=== PATIENT | male | born 1975 | race Caucasian/White ===

== ENCOUNTER 2016-09-09 14:51 | Emergency (ER) | payer BC ==
[2016-09-09 15:48] VITALS: BP 129/89
--- NOTE | 2016-09-19 14:37 | UC ---
Tami Lu SooYoung, scribed for Wanda Multani MD on 09/09/16 at 1618 . Back Pain HPI - HPI Summary HPI Summary: Pt is a 41 y/o M presents with c/o acute on chronic diffuse L hip pain onset approx 5 days ago. Radiating to LLE. Associated sx: numbness in LE, since resolved. Denies abd pain or changes. Pert PMHx: sciatica, scoliosis. He's worked all week but today his employer told him to go see a doctor. 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 He has not taken any pain medication today. Scheduled to see Dr. Vincent on 09/19. Pt is a non-smoker, chews smokeless tobacco, smoke marijuana. - History of Current Complaint Chief Complaint: UCBackPain Stated Complaint: HIP & BACK PAIN,LEG NUMB Time Seen by Provider: 09/09/16 16:08 Hx Obtained From: Patient Onset/Duration: Lasting Days, Still Present Timing: Constant Severity Currently: Moderate Pain Intensity: 7 Pain Scale Used: 0-10 Numeric Back Pain: Is Diffuse, Radiates To - LLE Associated Signs And Symptoms: Positive: Numbness - Allergies/Home Medications Allergies/Adverse Reactions: Allergies Allergy/AdvReac Type Severity Reaction Status Date / Time Codeine Allergy Mild hive Verified 09/09/16 15:48 Home Medications: Home Medications oxyCODONE TAB* [Roxycodone TAB 5 mg*] 1 tab PO PRN 09/09/16 [History] PMH/Surg Hx/FS Hx/Imm Hx Previously Healthy: No Endocrine History Of: Denies: Diabetes Cardiovascular History Of: Denies: Hypertension, Pacemaker/ICD GI/ History Of: Denies: Renal Disease Neurological History Of: Reports: Seizures - [age]grew [age] y/o - Surgical History Surgical History: None - Family History Known Family History: Positive: Seizure Disorder, Other - bone CA - sister at 19, breast CA - aunt, mother - Social History Occupation: Employed Full-time Lives: With Family Alcohol Use: Weekly Alcohol Amount: 12 PACK ONCE A WEEK Substance Use Type: Marijuana Smoking Status (MU): Former Smoker Type: Smokeless Tobacco Review of Systems Musculoskeletal: Other: - sciatic pain along L hip Neurological: Numbness - LE, resolved All Other Systems Reviewed And Are Negative: Yes Physical Exam Triage Information Reviewed: Yes Appearance: Well-Nourished, Pain Distress - leena with movement Vital Signs: Initial Vital Signs Temp 97.8 F 09/09/16 15:43 Pulse 77 09/09/16 15:43 Resp 16 09/09/16 15:43 BP 129/89 09/09/16 15:43 Pulse Ox 100 09/09/16 15:43 Vital Signs Reviewed: Yes Eye Exam: Normal - perrla eomi ENT Exam: Normal Neck exam: Normal - no c/o pain Respiratory Exam: Normal Cardiovascular Exam: Normal Abdominal Exam: Normal Musculoskeletal Exam: Other - tender post back, radiating to left sciatic distribution. No clonus. Pat reflexes approx 1+ bilat. Distal sensation - difficult to adequately assess - it all hurts. Cap refill good. No b/b complaints or dysfxn. Gait slow, steady, hunches. Neurological Exam: Other - see above Psychological Exam: Normal Skin Exam: Normal - Additional Comments Appearance: Well-Nourished Eye Exam: Normal ENT Exam: Normal Neck exam: Normal, no adenopathy appreciated Respiratory Exam: Chest non-tender, Lungs clear, Normal breath sounds, No respiratory distress, No accessory muscle use Cardiovascular Exam: Normal Cardiovascular: Heart rate regular, heart rate correlates w left radial pulse, good general skin color, good capillary refill Abdominal Exam: Normal Abdomen Description: Nontender, No organomegaly, Soft Bowel Sounds: Present Musculoskeletal Exam: TENDER PAIN IN LOWER LUMBAR REGION, L SCIATIC NOTCH EXTENDING, L SCIATIC NERVE DISTRIBUTION. REFLEXES 1+ ON BOTH SIDES, NO CLONUS, NO BABINSKI, SENSORY DERMATONES DIFFICULT TO APPRECIATE, COMPLAINTS OF PAIN DURING EXAMINATION Neurological Exam: Normal: nonfocal, grossly intact Psychological Exam: Normal: conversing easily and appropriately Skin Exam: Normal: no visible or reported rash Back Pain Course/Dx - Course Course Of Treatment: CONSULTED ISTOP, NO REPORTS. REF NUMBER: #[id number]. D/w Dr. Vincent's nurse practitioner. He will f/u with Dr. Vincent in the office, will call on Monday for appt. Has appt in a couple weeks, but will try to see sooner. Work note written for this week. He is pleased with coa and treatment plan. Questions answered to the best of my ability. - Differential Dx/Diagnosis Provider Diagnoses: Acute exacerbation of chronic back pain in the setting of severe disc disease - Physician Notifications Discussed Patient Care With: Spoke with ERIC Flores with Dr. Vincent Time Discussed With Above Provider: 16:25 Discharge - Discharge Plan Condition: Stable Disposition: HOME Prescriptions: Methocarbamol TAB* [Robaxin TAB*] 500 mg PO QID PRN #40 tab PRN Reason: Spasms Patient Education Materials: Methocarbamol (By mouth) Forms: *Work Release Referrals: Jun Vincent MD [Primary Care Provider] - As Soon As Possible Additional Instructions: Please follow up with your primary care provider. Seek medical attention for worsening problems in the meantime. The documentation as recorded by the Tami cardoza SooYoung accurately reflects the service I personally performed and the decisions made by me, Wanda Multani MD.
== END 2016-09-09 17:07 | disposition home or self-care (01) ==
LOC: UCEAST 14:51
DX: M51.17 Intervertebral disc disorders with radiculopathy, lumbosacral region (principal); Z88.5 Allergy status to narcotic agent; F12.90 Cannabis use, unspecified, uncomplicated; Z87.891 Personal history of nicotine dependence
CPT/HCPCS: 99212; G0463